=== PATIENT | female | born 1935 | race Caucasian/White ===

== ENCOUNTER → 2016-10-14 | Outpatient (CLI) | payer MEDICARE ==
[~2016-10-14] VITALS: Ht 160 cm; Wt 74.9 kg
[~2016-10-14] MED LIST: AMIT25TA9 PO; ASPI1TAB69 PO; DILA2TAB2 PO; IBUP-232 PO; INDOMETHACIN 50 MG SUPP PR ONE; INSULIN HUMAN REGULAR 1,000 UNITS/10 ML VIAL SQ PRN; IOHEXOL 350 MG/ML 100 ML BTL (for RAD DIAG) OTHER ONE; LACTATED RINGER'S 1000 ML IV SCH; LISI10TA3 PO; LOVA20TA PO; MACR100C2 PO; METOPROLOL TARTRATE 25 MG TAB PO PRN; MULT-135 PO; PROPOFOL 200 MG/20 ML AMP IV ONE; SODIUM CHLORID 0.9% 500 ML IV SCH; TRAM50TA PO
[2016-10-14 09:34] VITALS: BP 168/82; PULSE 98; RESP 20; TEMP 97.9; O2SAT 100
--- NOTE | 2016-10-14 12:44 | PD.PROCEDR ---
GI Procedure PROCEDURE PERFORMED ERCP with sphincterotomy and balloon extraction INDICATION FOR PROCEDURE Dilated bile duct with possible filling defects PROCEDURE: The procedure, risks and benefits were discussed with Ms. Dixon and informed consent was obtained. Anesthesia sedated her with Diprivan. She was placed in the left lateral decubitus position. ERCP: Patient was placed in a prone position. The Pentax videoscope was introduced through the oropharynx and advanced to the second portion of the duodenum where the ampula was identified. [] FINDINGS: The ampulla this appeared to be unremarkable small but at the edge of the duodenal diverticulum initially we cannulated the pancreatic duct only partial injection of contrast was done the pancreatic duct in the head of the pancreas was unremarkable and we were unable to cannulate the common bile duct and so a needle-knife sphincterotomy was done thereafter we were able to cannulate the common bile duct this appeared to be significantly dilated initially we saw filling defects and so a full sphincterotomy was performed then using a 15 mm balloon we were able to sweep the bile duct no stones were noted in the bile duct appears to be unremarkable otherwise most likely cause for dilation is the duodenal diverticulum ESTIMATED BLOOD LOSS: None SPECIMENS REMOVED: None COMPLICATIONS: None IMPRESSION: Duodenal diverticulum Dilated common bile duct PLAN: Patient to resume diet No further action from a GI standpoint regarding this issue Follow-up with GI as needed Nik Ibrahim MD Oct 14, 2016 12:44
--- NOTE | 2016-10-14 13:17 | RADRPT ---
EXAM DATE/TIME: 10/14/2016 12:02 [facility] COMPARISON: No previous studies available for comparison. INDICATIONS : Obstruction FLUORO TIME: 13 minutes IMAGE COUNT: CONTRAST: Instilled by Ordering Physician MEDICAL HISTORY : None. SURGICAL HISTORY : None. ENCOUNTER: Initial ACUITY: 1 day PAIN SCORE: Non-responsive. LOCATION: Abdomen FINDINGS: An ERCP was performed by the ordering physician. The images demonstrate a markedly distended common bile duct and mild/moderate distention of the intr ahepatic biliary radicles. There is blunt termination of the distal common bile duct suspicious for a n intraluminal filling defect. CONCLUSION: ERCP as above. Daniel Christianson MD on October 14, 2016 at 13:14 Board Certified Radiologist. This report was verified electronically.
[2016-10-14 13:20] VITALS: BP 177/76; PULSE 75; RESP 16; TEMP 97.4; O2SAT 100
--- NOTE | 2016-10-15 06:47 | EKG ---
Date Performed: 10/14/2016 Time Performed: 09:54:47 PTAGE: 80 years EKG: Sinus rhythm NORMAL ECG PREVIOUS TRACING : 06/27/2013 09.32 Compared to prior tracing no significant change DOCTOR: Andrew Boyd Interpretating Date/Time 10/15/2016 06:44:13
== END ==
LOC: HSDC 08:48
PROVIDERS: ATTEND Internal Medicine Gastroenterology
DX: K83.8 Other specified diseases of biliary tract (principal); K57.10 Diverticulosis of small intestine without perforation or abscess without bleeding; R10.13 Epigastric pain
CPT/HCPCS: 43262; 43277; 74330; 93005; 99156; J3010; Q9967